=== PATIENT | female | born 1955 | race Caucasian/White ===

== ENCOUNTER → 2017-01-17 | Outpatient (CLI) | payer OTHER ==
--- NOTE | 2017-01-18 11:12 | MM ---
Reason for exam: screening (asymptomatic). Last mammogram was performed 1 year and 10 months ago. History: Patient is postmenopausal and is nulliparous. Physical Findings: A clinical breast exam by your physician is recommended on an annual basis and results should be correlated with mammographic findings. MG Screening Mammo w CAD Bilateral CC and MLO view(s) were taken. Prior study comparison: April 02, 2015, bilateral MG screening mammo w CAD. There are scattered fibroglandular densities. Finding: There are few typically benign round calcifications in both breasts. There is no discrete abnormality. ASSESSMENT: Benign, BI-RAD 2 RECOMMENDATION: Routine screening mammogram of both breasts in 1 year.
== END | disposition home or self-care (01) ==
LOC: RADMAMWWP 07:25
PROVIDERS: ATTEND Family Medicine
DX: Z12.31 Encounter for screening mammogram for malignant neoplasm of breast (principal)

== ENCOUNTER 2017-12-17 11:17 | Emergency (ER) | payer OTHER ==
[2017-12-17 11:24] VITALS: BP 111/72; PULSE 72; RESP 22; TEMP 97.2
--- NOTE | 2017-12-17 11:48 | XR ---
EXAMINATION TYPE: XR shoulder limited LT , 2 VIEWS DATE OF EXAM ORDERED: 12/17/2017 HISTORY: Pain. COMPARISON: None. FINDINGS: There is a malunion of the middle one third of the clavicle. There are mild hypertrophic c hanges in the left AC joint. There are remodeling changes within the glenohumeral joint. No acute fra cture or dislocation is seen. IMPRESSION: 1. 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 2. REMODELING CHANGES IN THE GLENOHUMERAL JOINT. 3. MILD HYPERTROPHIC CHANGE IN THE LEFT AC JOINT. CODE K: SUBSEQUENT ENCOUNTER FOR CLOSED FRACTURE WITH NONUNION.
[2017-12-17] MEDS ORDERED: IBUPROFEN 600 MG TAB PO STA (12:13)
[2017-12-17] MEDS ORDERED: HYDROcodone/APAP 5-325MG 1 EACH TAB PO STA (12:13)
--- NOTE | 2017-12-17 12:17 | ED ---
Upper Extremity HPI - General Chief Complaint: Extremity Injury, Upper Stated Complaint: Arm injury Time Seen by Provider: 12/17/17 11:25 Source: patient, RN notes reviewed Mode of arrival: ambulatory Limitations: no limitations - History of Present Illness Initial Comments: 62-year-old female presents emergency Department with chief complaint left shoulder injury. Patient states that she's had a prior fracture to her left clavicle. Patient states that today she was walking her dog and the dog pulled aggressively forward states her arm outstretched and she nearly fell on it. Patient states she has severe pain with any movement to her left shoulder. Patient states that she's had no prior dislocations or fracture of her humerus. Patient denies any pain in her left elbow or left hand she denies any paresthesias. - Related Data Home Medications Medication Instructions Recorded Confirmed Aspirin 81 mg PO DAILY 03/12/14 12/17/17 Atorvastatin Calcium [Lipitor] 20 mg PO DAILY 03/12/14 12/17/17 Isosorbide Mononitrate [Imdur] 0.5 tab PO DAILY 03/12/14 12/17/17 Levothyroxine Sodium [Synthroid] 112 mcg PO DAILY 03/12/14 12/17/17 Lisinopril [Zestril] 10 mg PO BID 03/12/14 12/17/17 Previous Rx's Medication Instructions Recorded Hydrocodone/Acetaminophen [Zavalla 1 tab PO Q6HR PRN #12 tab 12/17/17 5-325] Ibuprofen [Motrin] 600 mg PO Q8HR PRN #30 tab 12/17/17 Allergies Allergy/AdvReac Type Severity Reaction Status Date / Time No Known Allergies Allergy Verified 12/17/17 11:24 Review of Systems ROS Statement: Those systems with pertinent positive or pertinent negative responses have been documented in the HPI. ROS Other: All systems not noted in ROS Statement are negative. Past Medical History Past Medical History: Chest Pain / Angina, Hyperlipidemia, Hypertension, Thyroid Disorder Additional Past Medical History / Comment(s): FAMILY HX CVD History of Any Multi-Drug Resistant Organisms: None Reported Past Surgical History: Cholecystectomy Additional Past Surgical History / Comment(s): SURG TO OPEN FALLOPIAN TUBES Past Anesthesia/Blood Transfusion Reactions: No Reported Reaction Past Psychological History: No Psychological Hx Reported Smoking Status: Never smoker Past Alcohol Use History: None Reported Past Drug Use History: None Reported General Exam Limitations: no limitations General appearance: alert, in no apparent distress Head exam: Present: atraumatic, normocephalic, normal inspection Neck exam: Present: normal inspection, full ROM. Absent: tenderness, meningismus, lymphadenopathy Respiratory exam: Present: normal lung sounds bilaterally. Absent: respiratory distress, wheezes, rales, rhonchi, stridor Cardiovascular Exam: Present: regular rate, normal rhythm, normal heart sounds. Absent: systolic murmur, diastolic murmur, rubs, gallop, clicks Extremities exam: Present: other (Left shoulder limited range of motion secondary pain there is minimal deformity noted to the left clavicle, left arm is neurovascularly intact there is no sulcus there is mild tenderness in the posterior aspect with palpation patient has full range of motion of left elbow) Course Vital Signs 12/17/17 11:21 Temperature 97.2 F L Pulse Rate 72 Respiratory 22 Rate Blood Pressure 111/72 O2 Sat by Pulse 100 Oximetry Medical Decision Making - Medical Decision Making 62-year-old female presented emergency department for left shoulder injury. There is no dislocation there is old nonunion fracture of the clavicle. Concern is rotator cuff injury secondary to the motion of injury. Patient will placed in a sling follow-up with on-call orthopedics and return parameters were discussed. Disposition Clinical Impression: Strain of shoulder Disposition: HOME SELF-CARE Condition: Stable Instructions: Rotator Cuff Injury (ED), Shoulder Sprain (ED) Additional Instructions: Please return to the Emergency Department if symptoms worsen or any other concerns. Prescriptions: Hydrocodone/Acetaminophen [Zavalla 5-325] 1 tab PO Q6HR PRN #12 tab PRN Reason: Pain Ibuprofen [Motrin] 600 mg PO Q8HR PRN #30 tab PRN Reason: Pain Is patient prescribed a controlled substance at d/c from ED?: Yes If prescribed controlled substance>3 days was MAPS reviewed?: No Referrals: Monster Fu Jr, DO [Primary Care Provider] - 1-2 days Brijesh Goyal MD [STAFF PHYSICIAN] - 1-2 days Time of Disposition: 12:16
== END 2017-12-17 12:23 | disposition home or self-care (01) ==
LOC: EC 11:17
DX: S46.912A Strain of unspecified muscle, fascia and tendon at shoulder and upper arm level, left arm, initial encounter (principal); E78.5 Hyperlipidemia, unspecified; I10 Essential (primary) hypertension; E07.9 Disorder of thyroid, unspecified; Z79.82 Long term (current) use of aspirin; Z79.899 Other long term (current) drug therapy; X50.0XXA Overexertion from strenuous movement or load, initial encounter; Y93.01 Activity, walking, marching and hiking
CPT/HCPCS: 99283

== ENCOUNTER → 2019-08-22 | Outpatient (CLI) | payer OTHER ==
--- NOTE | 2019-08-26 08:52 | MM ---
Reason for exam: screening (asymptomatic). Last mammogram was performed 2 years and 7 months ago. History: Patient is postmenopausal and is nulliparous. Physical Findings: A clinical breast exam by your physician is recommended on an annual basis and results should be correlated with mammographic findings. MG Screening Mammo w CAD Bilateral CC and MLO view(s) were taken. Prior study comparison: January 17, 2017, bilateral MG screening mammo w CAD. April 02, 2015, bilateral MG screening mammo w CAD. The breast tissue is heterogeneously dense. This may lower the sensitivity of mammography. No significant changes when compared with prior studies. ASSESSMENT: Benign, BI-RAD 2 RECOMMENDATION: Routine screening mammogram of both breasts in 1 year.
== END | disposition home or self-care (01) ==
LOC: RADMAMWWP 14:18
PROVIDERS: ATTEND Family Medicine
DX: Z12.31 Encounter for screening mammogram for malignant neoplasm of breast (principal)
CPT/HCPCS: 77067

== ENCOUNTER 2020-11-06 10:56 | Emergency (ER) | payer OTHER ==
[2020-11-06 11:06] VITALS: TEMP 97.9
[2020-11-06] MEDS ORDERED: SODIUM CHLORIDE 0.9% 1,000 ML IV STA (11:35)
--- NOTE | 2020-11-06 11:43 | ED ---
General Adult HPI - General Chief complaint: Chest Pain Stated complaint: SVT Time Seen by Provider: 11/06/20 11:00 Source: patient, RN notes reviewed, old records reviewed Mode of arrival: EMS Limitations: no limitations - History of Present Illness Initial comments: This is a 65-year-old female who was at the doctor's office when they noted that her heart rate was racing and so they called EMS and they noted her to be in SVT she was given adenosine and converted her in the rate to a sinus tachycardia. Patient states she was following up with her primary medical care doctor because over the last month she's had intermittent episodes where she feels extremely fatigued and tired she denies any chest pain or heart palpitations. Patient states when the episode was occurring she was having some shortness of breath as well. Patient states once they converted her she feels back to her baseline. Patient states she's had no fever chills or cough. Patient denies any abdominal pain patient denies nausea vomiting diarrhea. Patient denies any leg swelling or calf tenderness. Patient denies headache patient denies numbness weakness. - Related Data Home Medications Medication Instructions Recorded Confirmed Atorvastatin Calcium [Lipitor] 20 mg PO DAILY 03/12/14 11/06/20 Levothyroxine Sodium [Synthroid] 112 mcg PO DAILY 03/12/14 11/06/20 Albuterol Sulfate [Proair Hfa] 1 - 2 puff INHALATION RT-Q6H PRN 11/06/20 11/06/20 lisinopriL [Zestril] 20 mg PO DAILY 11/06/20 11/06/20 Allergies Allergy/AdvReac Type Severity Reaction Status Date / Time No Known Allergies Allergy Verified 11/06/20 12:29 Review of Systems ROS Statement: Those systems with pertinent positive or pertinent negative responses have been documented in the HPI. ROS Other: All systems not noted in ROS Statement are negative. Past Medical History Past Medical History: Chest Pain / Angina, Hyperlipidemia, Hypertension, Thyroid Disorder Additional Past Medical History / Comment(s): FAMILY HX CVD History of Any Multi-Drug Resistant Organisms: None Reported Past Surgical History: Cholecystectomy Additional Past Surgical History / Comment(s): SURG TO OPEN FALLOPIAN TUBES Past Anesthesia/Blood Transfusion Reactions: No Reported Reaction Past Psychological History: No Psychological Hx Reported Smoking Status: Never smoker Past Alcohol Use History: None Reported Past Drug Use History: Marijuana General Exam - General Exam Comments Initial Comments: GENERAL: Patient is well-developed and well-nourished. Patient is nontoxic and well- hydrated and is in mild distress. ENT: Neck is soft and supple. No significant lymphadenopathy is noted. Oropharynx is clear. Moist mucous membranes. Neck has full range of motion without eliciting any pain. EYES: The sclera were anicteric and conjunctiva were pink and moist. Extraocular movements were intact and pupils were equal round and reactive to light. Eyelids were unremarkable. PULMONARY: Unlabored respirations. Good breath sounds bilaterally. No audible rales rhonchi or wheezing was noted. CARDIOVASCULAR: Patient has a heart rate of about 110 bpm and regular. ABDOMEN: Soft and nontender with normal bowel sounds. SKIN: Skin is clear with no lesions or rashes and otherwise unremarkable. NEUROLOGIC: Patient is alert and oriented x3. Cranial nerves II through XII are grossly intact. Motor and sensory are also intact. Normal speech, volume and content. Symmetrical smile. MUSCULOSKELETAL: Normal extremities with adequate strength and full range of motion. LYMPHATICS: No significant lymphadenopathy is noted PSYCHIATRIC: Normal psychiatric evaluation. Limitations: no limitations Course Vital Signs 11/06/20 11/06/20 11/06/20 11:00 11:56 13:19 Temperature 97.9 F Pulse Rate 111 H 108 H 98 Respiratory 20 16 16 Rate Blood Pressure 114/81 119/85 99/72 O2 Sat by Pulse 100 99 100 Oximetry Medical Decision Making - Medical Decision Making EKG shows sinus tachycardia with occasional PAC at a rate of 114 bpm [place] interval 234 QRS is 80 QT interval 328 QTC is 452. Patient's EKG shows no ST segment elevation or depression. Patient was never no CT of the emergency department. Patient had no symptoms well in the emergency department. Patient states she'll follow-up with her veterinary practitioner. - Lab Data Result diagrams: 11/06/20 11:41 11/06/20 11:41 Lab Results 11/06/20 11/06/20 11/06/20 Range/Units 11:41 11:41 11:41 WBC 7.0 (3.8-10.6) k/uL RBC 4.02 (3.80-5.40) m/uL Hgb 13.8 (11.4-16.0) gm/dL Hct 39.2 (34.0-46.0) % MCV 97.4 (80.0-100.0) fL MCH 34.3 (25.0-35.0) pg MCHC 35.2 (31.0-37.0) g/dL RDW 12.3 (11.5-15.5) % Plt Count 345 (150-450) k/uL MPV 6.6 Neutrophils % 59 % Lymphocytes % 30 % Monocytes % 7 % Eosinophils % 1 % Basophils % 0 % Neutrophils # 4.1 (1.3-7.7) k/uL Lymphocytes # 2.1 (1.0-4.8) k/uL Monocytes # 0.5 (0-1.0) k/uL Eosinophils # 0.1 (0-0.7) k/uL Basophils # 0.0 (0-0.2) k/uL PT 11.3 (9.0-12.0) sec INR 1.1 (<1.2) APTT 21.6 L (22.0-30.0) sec Sodium 129 L (137-145) mmol/L Potassium 4.9 (3.5-5.1) mmol/L Chloride 100 (98-107) mmol/L Carbon Dioxide 19 L (22-30) mmol/L Anion Gap 10 mmol/L BUN 13 (7-17) mg/dL Creatinine 0.96 (0.52-1.04) mg/dL Est GFR (CKD-EPI)AfAm 73 (>60 ml/min/1.73 sqM) Est GFR (CKD-EPI)NonAf 63 (>60 ml/min/1.73 sqM) Glucose 130 H (74-99) mg/dL Calcium 8.6 (8.4-10.2) mg/dL Magnesium 1.7 (1.6-2.3) mg/dL Total Bilirubin 1.2 (0.2-1.3) mg/dL AST 171 H (14-36) U/L ALT 86 H (4-34) U/L Alkaline Phosphatase 101 (38-126) U/L Troponin I (0.000-0.034) ng/mL Total Protein 6.6 (6.3-8.2) g/dL Albumin 3.7 (3.5-5.0) g/dL TSH <0.015 L (0.465-4.680) mIU/L Urine Color Urine Appearance (Clear) Urine pH (5.0-8.0) Ur Specific [place] (1.001-1.035) Urine Protein (Negative) Urine Glucose (UA) (Negative) Urine Ketones (Negative) Urine Blood (Negative) Urine Nitrite (Negative) Urine Bilirubin (Negative) Urine Urobilinogen (<2.0) mg/dL Ur Leukocyte Esterase (Negative) Urine RBC (0-5) /hpf Urine WBC (0-5) /hpf Ur Squamous Epith Cells (0-4) /hpf Amorphous Sediment (None) /hpf Urine Bacteria (None) /hpf Hyaline Casts (0-2) /lpf Urine Mucus (None) /hpf Urine Opiates Screen (NotDetected) Ur Oxycodone Screen (NotDetected) Urine Methadone Screen (NotDetected) Ur Propoxyphene Screen (NotDetected) Ur Barbiturates Screen (NotDetected) U Tricyclic Antidepress (NotDetected) Ur Phencyclidine Scrn (NotDetected) Ur Amphetamines Screen (NotDetected) U Methamphetamines Scrn (NotDetected) U Benzodiazepines Scrn (NotDetected) Urine Cocaine Screen (NotDetected) U Marijuana (THC) Screen (NotDetected) 11/06/20 11/06/20 Range/Units 11:41 11:55 WBC (3.8-10.6) k/uL RBC (3.80-5.40) m/uL Hgb (11.4-16.0) gm/dL Hct (34.0-46.0) % MCV (80.0-100.0) fL MCH (25.0-35.0) pg MCHC (31.0-37.0) g/dL RDW (11.5-15.5) % Plt Count (150-450) k/uL MPV Neutrophils % % Lymphocytes % % Monocytes % % Eosinophils % % Basophils % % Neutrophils # (1.3-7.7) k/uL Lymphocytes # (1.0-4.8) k/uL Monocytes # (0-1.0) k/uL Eosinophils # (0-0.7) k/uL Basophils # (0-0.2) k/uL PT (9.0-12.0) sec INR (<1.2) APTT (22.0-30.0) sec Sodium (137-145) mmol/L Potassium (3.5-5.1) mmol/L Chloride (98-107) mmol/L Carbon Dioxide (22-30) mmol/L Anion Gap mmol/L BUN (7-17) mg/dL Creatinine (0.52-1.04) mg/dL Est GFR (CKD-EPI)AfAm (>60 ml/min/1.73 sqM) Est GFR (CKD-EPI)NonAf (>60 ml/min/1.73 sqM) Glucose (74-99) mg/dL Calcium (8.4-10.2) mg/dL Magnesium (1.6-2.3) mg/dL Total Bilirubin (0.2-1.3) mg/dL AST (14-36) U/L ALT (4-34) U/L Alkaline Phosphatase (38-126) U/L Troponin I <0.012 (0.000-0.034) ng/mL Total Protein (6.3-8.2) g/dL Albumin (3.5-5.0) g/dL TSH (0.465-4.680) mIU/L Urine Color Light Yellow Urine Appearance Cloudy H (Clear) Urine pH 6.0 (5.0-8.0) Ur Specific [place] 1.004 (1.001-1.035) Urine Protein Negative (Negative) Urine Glucose (UA) Negative (Negative) Urine Ketones Negative (Negative) Urine Blood Negative (Negative) Urine Nitrite Negative (Negative) Urine Bilirubin Negative (Negative) Urine Urobilinogen <2.0 (<2.0) mg/dL Ur Leukocyte Esterase Negative (Negative) Urine RBC 1 (0-5) /hpf Urine WBC 2 (0-5) /hpf Ur Squamous Epith Cells 3 (0-4) /hpf Amorphous Sediment Rare H (None) /hpf Urine Bacteria Rare H (None) /hpf Hyaline Casts 1 (0-2) /lpf Urine Mucus Rare H (None) /hpf Urine Opiates Screen Not Detected (NotDetected) Ur Oxycodone Screen Not Detected (NotDetected) Urine Methadone Screen Not Detected (NotDetected) Ur Propoxyphene Screen Not Detected (NotDetected) Ur Barbiturates Screen Not Detected (NotDetected) U Tricyclic Antidepress Not Detected (NotDetected) Ur Phencyclidine Scrn Not Detected (NotDetected) Ur Amphetamines Screen Not Detected (NotDetected) U Methamphetamines Scrn Not Detected (NotDetected) U Benzodiazepines Scrn Not Detected (NotDetected) Urine Cocaine Screen Not Detected (NotDetected) U Marijuana (THC) Screen Detected H (NotDetected) Disposition Clinical Impression: SVT (supraventricular tachycardia) Disposition: HOME SELF-CARE Condition: Good Instructions (If sedation given, give patient instructions): Supraventricular Tachycardia (ED) Is patient prescribed a controlled substance at d/c from ED?: No Referrals: Monster Fu Jr, [Primary Care Provider] - 1-2 days Time of Disposition: 13:31
[2020-11-06] MEDS: LORazepam 2 MG/ML INJ IV STA ×2 (11:52→11:55)
[2020-11-06 11:59] LABS: Basophils % (A) 0 %; Eosinophils # (A) 0.1 k/uL (0-0.7); Eosinophils % (A) 1 %; HCT 39.2 % (34.0-46.0); HGB 13.8 gm/dL (11.4-16.0); Lymphocytes # (A) 2.1 k/uL (1.0-4.8); Lymphocytes % (A) 30 %; MCH 34.3 pg (25.0-35.0); MCHC 35.2 g/dL (31.0-37.0); MCV 97.4 fL (80.0-100.0); Mean Platelet Volume 6.6; Monocytes # (A) 0.5 k/uL (0-1.0); Monocytes % (A) 7 %; Neutrophils # (A) 4.1 k/uL (1.3-7.7); Neutrophils % (A) 59 %; Platelet Count 345 k/uL (150-450); RBC 4.02 m/uL (3.80-5.40); RDW 12.3 % (11.5-15.5)
[2020-11-06 12:00] VITALS: RESP 16
[2020-11-06 12:09] LABS: ALT 86 U/L (4-34); AST 171 U/L (14-36); African American GFR (CKD) 73 (>60 ml/min/1.73 sqM); Albumin 3.7 g/dL (3.5-5.0); Alkaline Phosphatase 101 U/L (38-126); Anion Gap 10 mmol/L; Blood Urea Nitrogen 13 mg/dL (7-17); Calcium 8.6 mg/dL (8.4-10.2); Carbon Dioxide 19 mmol/L (22-30); Chloride 100 mmol/L (98-107); Glucose 130 mg/dL (74-99); Magnesium 1.7 mg/dL (1.6-2.3); Non-African American GFR(CKD) 63 (>60 ml/min/1.73 sqM); Potassium 4.9 mmol/L (3.5-5.1); Sodium 129 mmol/L (137-145); Total Bilirubin 1.2 mg/dL (0.2-1.3); Total Protein 6.6 g/dL (6.3-8.2)
--- NOTE | 2020-11-06 12:17 | XR ---
EXAMINATION TYPE: XR chest 2V DATE OF EXAM: 11/06/2020 COMPARISON: 03/12/2014 INDICATION: Dysrhythmia, shortness of breath TECHNIQUE: Frontal and lateral views of the chest are obtained. FINDINGS: The heart size is normal. The pulmonary vasculature is normal. Small right pleural effusion may be present. Lungs are otherwise clear. IMPRESSION: 1. Small posterior and lateral right pleural effusion
[2020-11-06 12:19] LABS: INR 1.1 (<1.2); Prothrombin Time 11.3 sec (9.0-12.0)
[2020-11-06 12:32] LABS: Partial Thromboplastin Time 21.6 sec (22.0-30.0)
[2020-11-06 12:36] LABS: Amorphous Sediment,Urine Rare /hpf; Appearance,Urine Cloudy (Clear); Bacteria,Urine Rare /hpf; Bilirubin,Urine Negative (Negative); Blood,Urine Negative (Negative); Color,Urine Light Yellow; Glucose,Urine (UA) Negative (Negative); Hyaline Casts,Urine 1 /lpf (0-2); Ketones,Urine Negative (Negative); Leukocyte Esterase,Urine Negative (Negative); Mucus,Urine Rare /hpf; Nitrite,Urine Negative (Negative); Protein,Urine Negative (Negative); RBC,Urine 1 /hpf (0-5); Specific Gravity,Urine 1.004 (1.001-1.035); Squamous Epithelial Cell,Urine 3 /hpf (0-4); Urobilinogen,Urine <2.0 mg/dL (<2.0); WBC,Urine 2 /hpf (0-5)
[2020-11-06 12:38] LABS: Amphetamine Screen,Urine Not Detected (NotDetected); Barbiturate Screen,Urine Not Detected (NotDetected); Benzodiazepines Screen,Urine Not Detected (NotDetected); Cocaine Screen,Urine Not Detected (NotDetected); Methadone Screen, Urine Not Detected (NotDetected); Opiate Screen,Urine Not Detected (NotDetected); Oxycodone Screen, Urine Not Detected (NotDetected); Phencyclidine Screen,Urine Not Detected (NotDetected); Tricyclic Antidepressant,Urine Not Detected (NotDetected); Urn Cannabinoid Scrn Detected (NotDetected)
[2020-11-06 13:21] VITALS: BP 99/72; PULSE 98
== END 2020-11-06 13:52 | disposition home or self-care (01) ==
LOC: EC 10:56 → SUPCPDRO 10:56 → EC 13:52
DX: I47.1 Supraventricular tachycardia (principal); E78.5 Hyperlipidemia, unspecified; I10 Essential (primary) hypertension
CPT/HCPCS: 36415; 71046; 80053; 80306; 81001; 83735; 84443; 84484; 85025; 85610; 85730; 93005; 99285

== ENCOUNTER → 2021-08-27 | Outpatient (CLI) | payer OTHER ==
[2021-08-27 20:22] LABS: HGB 13.1 g/dL (12.0-15.0); MCH 33.1 pg (27.0-32.0); MCHC 32.8 g/dL (32.0-37.0); Mean Platelet Volume 8.7 fL (9.5-12.2); Platelet Count 322 X 10*3/uL (140-440); RBC 3.96 X 10*6/uL (4.10-5.20); RDW 12.7 % (11.5-14.5); WBC 6.46 X 10*3/uL (4.50-10.00)
[2021-08-27 20:31] LABS: African American GFR (CKD) 78.8 (60.0-200.0); Anion Gap 13.6 mmol/L (10.00-18.00); BUN/Creat Ratio 10.8 Ratio (12.00-20.00); Blood Urea Nitrogen 9.7 mg/dL (9.0-27.0); Calcium 9.2 mg/dL (8.7-10.3); Carbon Dioxide 21.3 mmol/L (20.0-27.5); Potassium 4.6 mmol/L (3.5-5.5); T4, Free (Free Thyroxine) 1.65 ng/dL (0.800-1.800)
== END | disposition home or self-care (01) ==
LOC: LABWHC1 10:14
PROVIDERS: ATTEND Internal Medicine Interventional Cardiology
DX: I10 Essential (primary) hypertension (principal); E78.2 Mixed hyperlipidemia; I47.1 Supraventricular tachycardia; E03.9 Hypothyroidism, unspecified
CPT/HCPCS: 36415; 80048; 84439; 84443; 85027

== ENCOUNTER → 2021-12-21 | Outpatient (CLI) | payer OTHER ==
[2021-12-21 14:26] LABS: HCT 37.1 % (37.2-46.3); MCH 32.6 pg (27.0-32.0); MCHC 32.3 g/dL (32.0-37.0); MCV 100.8 fL (80.0-97.0); Mean Platelet Volume 8.6 fL (9.5-12.2); NRBC Per 100 WBC 0 /100 WBCS (0.0-0.0); Platelet Count 273 X 10*3/uL (140-440); RBC 3.68 X 10*6/uL (4.10-5.20); RDW 12.5 % (11.5-14.5); WBC 5.75 X 10*3/uL (4.50-10.00)
[2021-12-21 14:46] LABS: African American GFR (CKD) 105.9 (60.0-200.0); Blood Urea Nitrogen 8.5 mg/dL (9.0-27.0); Carbon Dioxide 23.5 mmol/L (20.0-27.5); Non-African American GFR(CKD) 91.4 (60.0-200.0); Potassium 4.4 mmol/L (3.5-5.5)
== END | disposition home or self-care (01) ==
LOC: LABPAT 10:25
PROVIDERS: ATTEND Internal Medicine Clinical Cardiac Electrophysiology
DX: Z01.812 Encounter for preprocedural laboratory examination (principal); I47.1 Supraventricular tachycardia
CPT/HCPCS: 80051; 82565; 84520; 85027

== ENCOUNTER 2022-01-04 06:39 | Day surgery (SDC) | payer OTHER ==
[2021-12-31 11:43] VITALS: BMI 24.5
[~2022-01-04 06:39] MED LIST: LACTATED RINGERS 1,000 ML IV SCH; LIDOCAINE 1% (10MG/ML) FOR IV START INTRADERMA PRN; ONDANSETRON 4 MG/2 ML VIAL IVP PRN; SODIUM CHLORIDE 0.9% 1,000 ML IV SCH; fentaNYL (PF) 50 MCG/ML 2 ML AMP IV PRN
[2022-01-04] MEDS ORDERED: SODIUM CHLORIDE 0.9% 1,000 ML IV ONE (07:10)
[2022-01-04] MEDS ORDERED: fentaNYL (PF) 50 MCG/ML 2 ML AMP ONE (08:12)
[2022-01-04] MEDS ORDERED: ISOPROTERENOL 250 MCG/1.25 ML SYR IV ONE (08:12)
[2022-01-04] MEDS ORDERED: MIDAZOLAM 2 MG/2 ML VIAL ONE (08:12)
[2022-01-04] MEDS ORDERED: LIDOCAINE 1% INJ 10MG/ML (30 ML VIAL-PF) SQ ONE (09:41)
[2022-01-04] MEDS ORDERED: HEPARIN SODIUM (1,000 UNIT/ML) 1,000 UNIT in SODIUM CHLORIDE 0.9% 1,000 ML IRRIGATION ONE (09:43)
[2022-01-04] MEDS ORDERED: ACETAMINOPHEN IV (For NPO) 1,000 MG in EMPTY BAG 1 BAG IVPB ONE (11:04)
[2022-01-04] MEDS ORDERED: ACETAMINOPHEN TAB 325 MG TAB PO PRN (11:04)
--- NOTE | 2022-01-04 11:09 | P.PRLE ---
RE: Grecia Miller Dear Monster Paige underwent a diagnostic EP study which revealed typical AV node reentry She underwent successful mapping and ablation of the slow pathway The tachycardia was rendered noninducible However on Isuprel we were able to induce nonsustained, brief episodes of atrial tachycardia She may have a few palpitations in the future especially during sympathetic stimulation For now of stopped metoprolol completely She will continue all her other medications unchanged She'll follow with you and Dr. Ayala as before Thank you for entrusting me with the care of the patient Warm regards Sincerely Manjinder Morfin
--- NOTE | 2022-01-04 12:02 | P.EPPROC ---
- EP Procedure Note Electrophysiology Procedure Note: Diagnosis Recurrent SVT despite medical treatment Procedure Successful mapping and ablation of the slow pathway for treatment of AV yenifer reentrant tachycardia Tachycardia rendered noninducible both on and off Isuprel Details Patient was brought to the EP lab in a fasting state. Written informed consent was obtained prior to the procedure. The right and left groins were prepped and draped as a protocol and venous sheaths were placed 4 diagnostic catheter placed, high right atrium, His bundle, right ventricle and coronary sinus Diagnoses EP study is performed Sinus cycle length 990 ms, KS interval 157, QRS 88 and QT 416 AH 97 and HV 33 ms Sinus node recovery times at 600, 504 100 ms were 1278, 1402 and 1301 Corresponding corrected to sinus recovery times were within normal limits AV node Wenckebach block 400 ms Evidence of antegrade slow pathway conduction at 420 ms Atrial extra stimulation revealed jump in the AH interval@600/330 ms with echo beats SVT induced with straight pacing Tachycardia cycle length 419 ms Spontaneous termination with block in the fast pathway Concentric activation Short septal time of less than 30 ms Yenifer response to Parahisian pacing Long sheath with irrigated tip catheter placed in the right heart 3-D anatomic mapping performed, His bundle mapped, coronary sinus mapped, tricuspid annulus Slow pathway mapped RF ablation performed outside and just anterior to the coronary sinus os, close to the floor Junctional rhythm obtained Following that complete diagnostic EP study is performed both on and off Isuprel There was no evidence for antegrade slow pathway conduction thereafter SVT noninducible HRA stimulation, CS stimulation and RV stimulation Straight pacing and extra stimulation after double extrastimuli performed Patient to the procedure well without any acute complications Groin accesses was sealed with Vascade closure device
--- NOTE | 2022-01-04 12:09 | P.HPCAR ---
History of Present Illness This is Dr. Morfin dictating an H/P on this patient The patient was interviewed and examined IMPRESSION / ASSESSMENT: Recurrent palpitations associated with feeling of anxiety Mild mitral valve prolapse with [id number] mitral regurgitation, anterior leaflet Exercise-induced AVNRT documented PLAN: IV antibiotics 1 dose Diagnoses EP study and efficacy ablation of the slow pathway HPI Patient interviewed and examined prior to the procedure No chest discomfort dizziness lightheadedness for no palpitations in the last o ne week No loss of consciousness No fever chills cough expectoration ROS: No fever chills or rigors, no cough, phlegm or expectoration, no nausea, vomiting or diarrhea, no hematuria, dysuria, no musculoskeletal complaints, no strokes or seizures, no skin lesions. EXAMINATION: 130/90 mmHg, pulse rate in the 60s Normal heart sounds normal S1 normal S2 soft systolic Clear lungs [place] crackles Abdomen soft Extremities warm no edema No JVD REVIEW OF LABS, ECG & MEDICAL DATA coronavirus PCR nondetectable Physical Exam Vitals: Vital Signs Temp Pulse Pulse Resp BP Pulse Ox 01/04/22 11:39 63 104/69 92 L 01/04/22 11:23 97.6 F 64 17 113/69 97 01/04/22 07:33 69 16 143/78 96 01/04/22 07:29 20 F L 69 Intake and Output 01/03/22 01/04/22 01/04/22 22:59 06:59 14:59 Intake Total 692 Balance 692 Intake: IV 692 Other: Weight 61.4 kg Past Medical History Past Medical History: Chest Pain / Angina, Hyperlipidemia, Hypertension, Osteoarthritis (OA), Thyroid Disorder Additional Past Medical History / Comment(s): Hx Bronchitis. History of Any Multi-Drug Resistant Organisms: None Reported Past Surgical History: Cholecystectomy Additional Past Surgical History / Comment(s): SURGERY TO OPEN FALLOPIAN TUBES. Past Anesthesia/Blood Transfusion Reactions: No Reported Reaction Past Psychological History: No Psychological Hx Reported Smoking Status: Never smoker Past Alcohol Use History: Occasional Past Drug Use History: Marijuana Additional Drug Use History / Comment(s): MEDICAL MARIJUANA OCCASIONALLY. Aware no use 24 hrs prior to procedure. - Past Family History Brother(s) Family Medical History: Cancer Physical Examination Vital Signs Temp Pulse Pulse Resp BP Pulse Ox 01/04/22 11:39 63 104/69 92 L 01/04/22 11:23 97.6 F 64 17 113/69 97 01/04/22 07:33 69 16 143/78 96 01/04/22 07:29 20 F L 69 Intake and Output 01/03/22 01/04/22 01/04/22 22:59 06:59 14:59 Intake Total 692 Balance 692 Intake: IV 692 Other: Weight 61.4 kg Results Current Medications Generic Name Dose Route Start Last Admin Trade Name Liz PRN Reason Stop Dose Admin Acetaminophen 650 mg 01/04/22 11:04 Acetaminophen Tab 325 Mg Tab PO 02/03/22 11:05 Q6HR PRN Mild Pain Atorvastatin Calcium 20 mg 01/05/22 09:00 Atorvastatin 20 Mg Tab PO 02/04/22 09:01 DAILY JON Levothyroxine Sodium 112 mcg 01/05/22 07:30 Levothyroxine 112 Mcg Tab PO [id number] JON Lidocaine HCl 0.1 ml 01/04/22 06:01 Lidocaine 1% (10mg/Ml) For Iv Start INTRADERMA 02/03/22 06:02 PER PROTOCOL PRN IV Start Lisinopril 20 mg 01/05/22 09:00 Lisinopril 20 Mg Tab PO 02/04/22 09:01 DAILY JON Ondansetron HCl 4 mg 01/04/22 06:01 Ondansetron 4 Mg/2 Ml Vial IVP 01/04/22 23:00 ONCE PRN Phase 1 or 2 - Nausea/Vomiting Sodium Chloride 12 ml 01/04/22 11:04 Sodium Chloride 0.9% Flush 10 Ml Syringe IV 02/03/22 11:05 Q12HR PRN Line Flush Intake and Output 01/03/22 01/04/22 01/04/22 22:59 06:59 14:59 Intake Total 692 Balance 692 Intake: IV 692 Other: Weight 61.4 kg Patient Weight 01/05/22 06:59 Weight 61.4 kg
[2022-01-05] MEDS ORDERED: LEVOTHYROXINE 112 MCG TAB PO SCH (07:30)
--- NOTE | 2022-01-05 07:47 | P.DS ---
Providers Attending physician: Manjinder Morfin Primary care physician: [facility] Course: Patient is a pleasant 66-year-old female with history of mild mitral valve prolapse, mild to moderate mitral regurgitation and SVT who presented for SVT ablation. She had SVT ablation from the bilateral femoral sites has been doing well today without any chest pain or pressure. Heart rate regular rate and rhythm with normal S1 and S2, lungs clear to auscultation bilaterally. Patient is stable for discharge home and we will stop her metoprolol going home. Follow-up in office in 1 week. Plan - Discharge Summary Discharge Rx Participant: No New Discharge Prescriptions: No Action Levothyroxine Sodium [Synthroid] 112 mcg PO DAILY Atorvastatin Calcium [Lipitor] 20 mg PO DAILY Albuterol Sulfate [Proair Hfa] 1 - 2 puff INHALATION RT-Q6H PRN PRN Reason: Shortness Of Breath lisinopriL [Zestril] 20 mg PO DAILY Metoprolol Succinate [Toprol XL] 25 mg PO DAILY Discharge Medication List Atorvastatin Calcium [Lipitor] 20 mg PO DAILY 03/12/14 [History] Levothyroxine Sodium [Synthroid] 112 mcg PO DAILY 03/12/14 [History] Albuterol Sulfate [Proair Hfa] 1 - 2 puff INHALATION RT-Q6H PRN 11/06/20 [History] lisinopriL [Zestril] 20 mg PO DAILY 11/06/20 [History] Metoprolol Succinate [Toprol XL] 25 mg PO DAILY 12/31/21 [History] Follow up Appointment(s)/Referral(s): Staci Ayala MD [STAFF PHYSICIAN] - 1 Week (Groin check in 1 week) Activity/Diet/Wound Care/Special Instructions: Post EP study - Ablation instructions 1. Keep access sites dry for 2 days. 2. No heavy lifting or straining for 2 days. 3. Avoid bending the hips repeatedly for 2 days. 4. You may go up and down stairs slowly Call if the following is noted 1. Bleeding, increasing swelling or pain at the access sites. 2. Increasing chest discomfort, especially upon taking a deep breath. 3. Increasing shortness of breath, at rest or with exertion. 4. Undue cough / phlegm 5. Difficulty or pain while swallowing. 6. Pain or change in color in the extremities. 7. Fever, chills, rigors. 8. Increasing headache or neurologic symptoms. 9. Dizziness, fainting, palpitations Discontinue metoprolol Continue other medications and follow Dr. Ayala in 1 week Discharge Disposition: HOME SELF-CARE
[2022-01-05 08:37] VITALS: BP 124/76; PULSE 71; RESP 18; TEMP 97.6
[2022-01-05] MEDS ORDERED: lisinopriL 20 MG TAB PO SCH (09:00)
[2022-01-05] MEDS ORDERED: ATORVASTATIN 20 MG TAB PO SCH (09:00)
== END 2022-01-05 11:15 | disposition home or self-care (01) ==
LOC: CATHEP 06:39 → 6NMEDSUR 10:55 → CATHEP 01-05 11:15
PROVIDERS: ATTEND Internal Medicine Clinical Cardiac Electrophysiology
DX: I47.1 Supraventricular tachycardia (principal); I34.0 Nonrheumatic mitral (valve) insufficiency; I34.1 Nonrheumatic mitral (valve) prolapse; I10 Essential (primary) hypertension; Z20.822 Contact with and (suspected) exposure to COVID-19; E78.5 Hyperlipidemia, unspecified; M19.90 Unspecified osteoarthritis, unspecified site; F17.200 Nicotine dependence, unspecified, uncomplicated; E07.9 Disorder of thyroid, unspecified; Z90.49 Acquired absence of other specified parts of digestive tract; Z98.890 Other specified postprocedural states; Z80.9 Family history of malignant neoplasm, unspecified; Z97.2 Presence of dental prosthetic device (complete) (partial); Z79.890 Hormone replacement therapy; Z79.899 Other long term (current) drug therapy
CPT/HCPCS: 93623; 93653; 87635; C1769 ×3; C1894; C1760; C1766; C1730 ×3; C1732; J2250; J2001; J3010; J1644; J0131

== ENCOUNTER → 2023-07-19 | Outpatient (CLI) | payer OTHER ==
[2023-07-19 15:42] LABS: BUN/Creat Ratio 10.12 Ratio (12.00-20.00); Blood Urea Nitrogen 8.1 mg/dL (9.0-27.0); Carbon Dioxide 23.6 mmol/L (21.6-31.8); Chloride 93 mmol/L (96-109); Chol/HDL Ratio 1.48 Ratio; Glucose 103 mg/dL (70-110); LDL Cholesterol,Calculated 45.5 mg/dL (0.0-131.0); Potassium 5.2 mmol/L (3.5-5.5); Sodium 130 mmol/L (135-145); VLDL Calculation 13.48 mg/dL (5.00-40.00)
== END | disposition home or self-care (01) ==
LOC: LABWHC1 08:36
PROVIDERS: ATTEND Internal Medicine Interventional Cardiology
DX: I10 Essential (primary) hypertension (principal); E78.5 Hyperlipidemia, unspecified
CPT/HCPCS: 36415; 80048; 80061; 83036; 84439; 84443

== ENCOUNTER → 2024-08-19 | Outpatient (CLI) | payer MEDICARE, OTHER ==
--- NOTE | 2024-08-19 10:20 | MM ---
Reason for Exam: Screening (asymptomatic). Last mammogram was performed 5 year(s) and 0 month(s) ago. Patient History: Menarche at age 15. Patient has no children. Postmenopausal. Risk Values: Tanya 5 year model risk: 1.9%. NCI Lifetime model risk: 6.7%. Prior Study Comparison: 04/02/2015 Bilateral Screening Mammogram, [facility]. 01/17/2017 Bilateral Screening Mammogram, [facility]. 08/22/2019 Bilateral Screening Mammogram, [facility]. Tissue Density: The breasts are heterogeneously dense, which may obscure small masses. Analyzed By CAD. Overall Assessment: Benign, BI-RAD 2 Management: Screening Mammogram of both breasts in 1 year. Electronically signed and approved by: Tony Payton M.D.
== END | disposition home or self-care (01) ==
LOC: RADMAMWWP 06:46
PROVIDERS: ATTEND Family Medicine
DX: Z12.31 Encounter for screening mammogram for malignant neoplasm of breast (principal); R92.333 Mammographic heterogeneous density, bilateral breasts; Z78.0 Asymptomatic menopausal state
CPT/HCPCS: 77067

== ENCOUNTER → 2024-08-20 | Outpatient (CLI) | payer MEDICARE, OTHER ==
--- NOTE | 2024-08-20 09:16 | BD ---
EXAMINATION TYPE: Axial Bone Density DATE OF EXAM: 08/20/2024 CLINICAL HISTORY: 68 years old Female. ICD-10 CODE: Z78.0 MENOPAUSAL , Additional History: Height: 61 Weight: 123.8 FRAX RISK QUESTIONS: Alcohol (3 or more units per day): yes Family History (Parent hip fracture): father Glucocorticoids (More than 3mos): no (Ex: prednisone, prednisolone, methylprednisolone, dexamethasone, and hydrocortisone). History of Fracture in Adulthood: clavicle Secondary Osteoporosis: 1. Type 1 Diabetes: no 2. Hyperthyroidism: no 3. Menopause before 45: yes 4. Malnutrition: no 5. Chronic liver disease: no Rheumatoid Arthritis: no Current Tobacco Use: no RISK FACTORS HISTORY OF: Hip Fracture (Right/Left): no Spine Fracture: no History of Wrist Fracture: no Surgery to Spine/Hip(right/left)/Wrist (right/left): no MEDICATIONS: Thyroid Medications: Levothyroxine How Long: past 20 years Osteoporosis Medications: no EXAM MEASUREMENTS: Bone mineral densitometry was performed using the [employer] System. Bone mineral density as measured about the Lumbar spine is: ----- L1-L4(G/cm2): 0.915 T Score Values are as follows: ----- L1: -2.2 ----- L2: -2.5 ----- L3: -1.7 ----- L4: -2.6 ----- L1-L4: -2.2 Z Score Values are as follows: ----- L1: -0.3 ----- L2: -0.6 ----- L3: 0.2 ----- L4: -0.6 ----- L1-L4: -0.3 Baseline Study Bone mineral density about the R hip (g/cm2): 0.649 Bone mineral density about the L hip (g/cm2): 0.657 T Score values are as follows: -----R Neck: -2.7 -----L Neck: -2.9 -----R Total: -2.8 -----L Total: -2.8 Z Score values are as follows: -----R Neck: -0.9 -----L Neck: -1.2 -----R Total: -1.3 -----L Total: -1.3 Baseline Study FRAX%s: The graph provided illustrates a 47.7 % chance for a major osteoporotic fx and a 15.5% chance for the hips probability for fx in 10 years time. IMPRESSION: Osteopenia (T Score between -2.5 and -1). There is slightly increased risk of fracture and the patient may be considered for treatment. Re-Screen 2-5 years. NOTE: T-SCORE=SD OF THE YOUNG ADULT MEAN. [facility], , 08/20/2024 9:14 AM
== END | disposition home or self-care (01) ==
LOC: RADBDWWP 06:55
PROVIDERS: ATTEND Family Medicine
DX: Z78.0 Asymptomatic menopausal state (principal); M85.89 Other specified disorders of bone density and structure, multiple sites
CPT/HCPCS: 77080